=== PATIENT | female | born 2000 | race African-American/Black ===

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

== ENCOUNTER 2021-10-25 19:18 | Emergency (ER) | payer OTHER, MEDICAID ==
[~2021-10-25] VITALS: Ht 157.5 cm; Wt 50.0 kg
[2021-10-25 20:05] LABS: BASO % 0.3 % (0.0-2.0); EOS # 0.1 K/mm3 (0.0-0.7); EOS % 0.8 % (0.0-4.0); GRAN # 3.6 K/mm3 (1.4-6.5); GRAN % 55.1 % (42.2-75.2); HEMATOCRIT 40.9 % (35.0-45.0); HEMOGLOBIN 12.9 g/dl (12.0-15.0); LYMPH # 2.3 K/mm3 (1.2-3.4); MEAN CELL VOLUME 89 fl (80.0-95.0); MEAN CORPUSCULAR HEMOGLOBIN 28 pg (26-32); MEAN CORPUSCULAR HGB CONC 32 g/dl (33.0-37.0); MEAN PLATELET VOLUME 9.1 fl (7.4-10.4); MONO # 0.6 K/mm3 (0.1-0.6); MONO % 9.5 % (1.7-9.3); PLATELET COUNT 312 K/mm3 (130-400); RED BLOOD COUNT 4.58 M/mm3 (4.10-5.30); REDCELL DISTRIBUTION WIDTH-CV 13.9 % (11.5-14.5)
[2021-10-25 20:25] LABS: ALANINE AMINOTRANSFERASE 15 U/L (0-55); ALBUMIN 4.1 gm/dL (3.5-5.0); ALKALINE PHOSPHATASE 46 U/L (40-150); ANION GAP 10 mmol/L (7-16); AST,SGOT 17 U/L (5-34); BILIRUBIN,TOTAL 0.3 mg/dL (0.2-1.2); BLOOD UREA NITROGEN 11 mg/dL (7-19); CALCIUM 9.5 mg/dL (8.4-10.2); CARBON DIOXIDE 22 mmol/L (22-29); CHLORIDE 105 mmol/L (98-107); CREATININE, serum 0.82 mg/dL (0.57-1.11); GLUCOSE 103 mg/dL (70-99); POTASSIUM 3.4 mmol/L (3.5-4.5); SODIUM 137 mmol/L (136-145); TOTAL PROTEIN 7.7 gm/dL (6.2-8.1)
[2021-10-25 20:32] LABS: TROPONIN-I < 0.010 ng/mL (0.00-0.033)
[2021-10-25] MEDS ORDERED: FLEXERIL 1010 MG/TAB PO (21:38)
[2021-10-25 21:45] VITALS: BP 118/72; PULSE 110
== END 2021-10-25 21:58 | disposition home or self-care (01) ==
LOC: COL.ER 19:18
PROVIDERS: Nurse Practitioner
DX: S16.1XXA Strain of muscle, fascia and tendon at neck level, initial encounter (principal); S20.212A Contusion of left front wall of thorax, initial encounter; V49.50XA Passenger injured in collision with unspecified motor vehicles in traffic accident, initial encounter
CPT/HCPCS: J3010; Q9967

== ENCOUNTER 2022-07-02 11:30 | Outpatient (CLI) | payer OTHER, MEDICAID ==
[~2022-07-02 11:30] MED LIST changes: +FLEXERIL 1010 MG/TAB PO
[2022-07-02 12:06] VITALS: TEMP 99
[2022-07-02 12:25] VITALS: BP 121/73; PULSE 95
[2022-07-02] MEDS ORDERED: ZOFRAN ODT4 MG PO (12:32)
== END 2022-07-02 13:47 ==
LOC: EUO 11:30
DX: E86.0 Dehydration (principal)
CPT/HCPCS: J7030